=== PATIENT | female | born 1955 | race Caucasian/White ===

== ENCOUNTER 2021-08-31 10:34 | Inpatient (IN) ==
[~2021-08-31 10:34] MED LIST: Acetaminophen IV 1,000 MG/100 ML BAG IVPB ONE; ceFAZolin 1,000 MG, Sodium Chloride IRRigation 1,000 ML IR ONE
[2021-08-31] MEDS ORDERED: CeFAZolin Syr 2,000MG/20 ML 2,000 MG/20 ML SYRINGE IVPB ONE (10:51)
[2021-08-31] MEDS ORDERED: Ringers Solution, Lactated 1,000 ML IVC SCH (11:00)
[2021-08-31] MEDS ORDERED: *HR* FentaNYL (PF) 100 MCG/2 ML VIAL ONE (11:01)
[2021-08-31] MEDS ORDERED: *HR* Propofol 200 MG/20 ML VIAL IVP ONE (11:02)
[2021-08-31] MEDS ORDERED: *HR* Midazolam HCl 2 MG/2 ML VIAL ONE (11:02)
[2021-08-31] MEDS ORDERED: *HR* Rocuronium Bromide 50 MG/5 ML VIAL ONE (11:03)
[2021-08-31] MEDS ORDERED: *HR* Succinylcholine 200 MG/10 ML VIAL IVP ONE (11:03)
[2021-08-31] MEDS ORDERED: Ondansetron 4 MG/2 ML VIAL ONE (11:06)
[2021-08-31] MEDS ORDERED: EPHEDrine 50 MG/ML VIAL ONE (11:07)
[2021-08-31] MEDS ORDERED: Ondansetron 4 MG/2 ML VIAL IVP PRN ×2 (11:10→15:58)
[2021-08-31] MEDS ORDERED: *HR* FentaNYL (PF) 100 MCG/2 ML VIAL IVP PRN (11:10)
[2021-08-31] MEDS ORDERED: Albuterol 2.5 MG/3 ML NEBULIZER IH PRN (11:10)
[2021-08-31] MEDS ORDERED: *HR* Meperidine 25 MG/ML SYRINGE IVP PRN (11:10)
[2021-08-31] MEDS ORDERED: *HR* Remifentanil 1 MG VIAL IVP ONE (11:10)
[2021-08-31] MEDS ORDERED: Lidocaine -MPF 4% 5 ML AMPUL ONE (11:25)
[2021-08-31] MEDS ORDERED: *HR* Heparin 5,000 UNIT/ML VIAL ONE (13:59)
[2021-08-31] MEDS ORDERED: Sugammadex Sodium 200 MG/2 ML VIAL IV ONE (14:00)
[2021-08-31] MEDS ORDERED: *HR* Labetalol 20 MG/4 ML SYRINGE IVP ONE (14:47)
[2021-08-31] MEDS ORDERED: Heparin 1,000 UNITS/500 mL 500 ML ONE (15:17)
[2021-08-31] MEDS ORDERED: *HR* Labetalol 20 MG/4 ML SYRINGE IVP PRN (15:58)
[2021-08-31] MEDS ORDERED: Acetaminophen 325 MG TABLET PO PRN (15:58)
[2021-08-31] MEDS ORDERED: *HR* HYDROcodone/Acet 7.5/325 mg TABLET PO PRN (15:58)
[2021-08-31] MEDS ORDERED: Naloxone 0.4 MG/ML INJ IVP PRN (15:58)
[2021-08-31] MEDS: Gabapentin 400 MG CAPSULE PO SCH ×2 (16:27→20:48)
[2021-08-31] MEDS: *HR* HYDROcodone/Acet 5/325 mg TABLET PO PRN (16:27)
[2021-08-31] MEDS: CeFAZolin 2 GM/120 ML BAG IVPB SCH (16:38)
[2021-08-31] MEDS: *HR* Metformin 500 MG TABLET PO SCH (20:48)
[2021-08-31] MEDS: Magnesium Oxide 400 MG TABLET PO SCH (20:48)
[2021-08-31] MEDS: GlipiZIDE 5 MG TABLET PO SCH (20:49)
[2021-09-01 03:30] LABS: Basophils # 0.1 K/mcL (0.0-0.2); Basophils % 0.5 %; Eosinophils % 0.1 %; Hematocrit 38.1 % (35.3-44.9); Hemoglobin 12.1 g/dL (11.5-15.4); Immature Granulocytes % 0.3 % (0-4); Lymphocytes # 1.9 K/mcL (0.6-4.6); Lymphocytes % 16.3 %; Mean Corpuscular HGB Conc 31.8 g/dL (31.6-35.5); Mean Corpuscular Hemoglobin 28.9 pg (28.0-33.3); Mean Corpuscular Volume 91.1 fL (83.0-100.0); Monocytes # 0.6 K/mcL (0.0-1.3); Monocytes % 5.3 %; Platelet Count 228 K/mcL (140-400); Red Blood Count 4.18 M/mcL (3.82-4.97); Red Cell Distribution Width 14.1 % (11.5-14.5); Segmented Neutrophils % 77.5 %; White Blood Count 11.6 K/mcL (4.3-11.1)
[2021-09-01 04:00] LABS: BUN/Creatinine Ratio 17 (6-26); Blood Urea Nitrogen 12 mg/dL (8-23); Calcium 8.6 mg/dL (8.6-10.3); Carbon Dioxide 26 mEq/L (23-29); Chloride 108 mEq/L (98-107); Glucose 125 mg/dL (70-105); Osmolality,Calculated 289 (280-300); Potassium 4.3 mEq/L (3.5-5.1); Sodium 139 mEq/L (136-145); eGFR For African Americans > 60 (> 60); eGFR For Non-African Americans > 60 (> 60)
[2021-09-01] MEDS: *HR* HYDROcodone/Acet 5/325 mg TABLET PO PRN (05:52)
[2021-09-01 07:25] VITALS: BP 138/45; PULSE 81; TEMP 98.5; O2SAT 92
[2021-09-01] MEDS: CeFAZolin 2 GM/120 ML BAG IVPB SCH ×2 (08:00)
[2021-09-01] MEDS: Gabapentin 400 MG CAPSULE PO SCH (08:00)
[2021-09-01] MEDS: GlipiZIDE 5 MG TABLET PO SCH (08:00)
[2021-09-01] MEDS: Magnesium Oxide 400 MG TABLET PO SCH (08:00)
[2021-09-01] MEDS: *HR* Metformin 500 MG TABLET PO SCH (08:00)
[2021-09-01] MEDS ORDERED: Aspirin Enteric Coated 81 MG Tablet PO SCH (09:00)
[2021-09-01] MEDS ORDERED: ALPRAZolam 0.5 MG TABLET PO SCH (09:00)
[2021-09-01] MEDS ORDERED: *HR* SitaGLIPtin 100 MG TABLET PO SCH (09:00)
[2021-09-01] MEDS ORDERED: lisinopriL 5 MG TABLET PO SCH (09:00)
== END 2021-09-01 11:35 | disposition home or self-care (01) | DRG 39 ==
LOC: SAMDAY 10:34 → 2NNU 15:58
PROVIDERS: ADMIT Surgery Vascular Surgery; ATTEND Surgery Vascular Surgery